=== PATIENT | male | born 2000 | race Caucasian/White ===

== ENCOUNTER 2024-03-08 10:45 | Emergency (ER) | payer SELFPAY ==
[2024-03-08 11:36] VITALS: BP 110/66; PULSE 85; RESP 16; TEMP 36.8; O2SAT 98
--- NOTE | 2024-03-08 11:58 | ED_ITS ---
HPI - URI/Sore Throat General Chief Complaint: Upper Respiratory Infection Stated Complaint: Sore Throat/Ear Pain Time Seen by Provider: 03/08/24 11:58 History of Present Illness HPI Narrative: 23 y/o male presented for c/o sore throat and ear pain for about 2 days. Patient completed Augmentin for bilateral ear infection 3 days ago. He states the URI symptoms restarted. Taking Sudafed for symptoms. Denies cough, shortness of breath, wheezing nausea, vomiting or fever. Related Data Home Medications Medication Instructions Recorded Confirmed tretinoin 0.025 % topical cream 1 applic topical HS 03/08/24 03/08/24 Allergies Allergy/AdvReac Type Severity Reaction Status Date / Time No Known Allergies Allergy Verified 03/08/24 12:05 Review of Systems Review of Systems: ROS per HPI Exam Narrative: GENERAL: well-appearing EYES: conjunctivae clear ENT: Mucous membranes moist. Right TM pearly dean with normal light reflex; left TM erythematous, bulging and intact; canal not erythematous, no drainage no tragal tenderness. Oropharynx erythematous without lesions. Tonsils enlarged and without exudate. No drooling, no hoarseness, no trismus, uvula midline. No tripod positioning, hot potato voice, or soft palate swelling. NECK: Supple. No lymphadenopathy CHEST: Clear to auscultation, breath sounds equal. No respiratory distress, speaks in full sentences. HEART: Regular rate and rhythm. SKIN: Warm, dry, no rash. NEURO: Alert and oriented x3. Course Course Emergency Course: Patient is aware of diagnosis, understands and agrees to treatment plan. Anticipatory guidance given. Patient agrees to follow-up as directed and is aware of reasons to seek care at the emergency department. Portions of this record may have been created with voice recognition software Level of Care: Express Care Visit Vital Signs Vital signs: Vital Signs Temperature 98.3 F 03/08/24 11:36 Pulse Rate 85 03/08/24 11:36 Respiratory Rate 16 03/08/24 11:36 Blood Pressure 110/66 03/08/24 11:36 Pulse Oximetry 98 03/08/24 11:36 Temperature 98.3 F 03/08/24 11:36 Pulse Rate 85 03/08/24 11:36 Respiratory Rate 16 03/08/24 11:36 Blood Pressure 110/66 03/08/24 11:36 Pulse Oximetry 98 03/08/24 11:36 MDM - URI/Sore Throat MDM Narrative Medical decision making narrative: Neg strep result reviewed with pt. discussed physical exam findings consistent with left otitis media. Pt completed Augmentin 3 days ago. Advise supportive treatments. Patient is appropriate for outpatient treatment and follow-up. Differential Diagnosis Differential diagnosis: Likely upper respiratory infection, viral infection and pharyngitis Discharge Plan Discharge Clinical Impression: Otitis media Patient Disposition: Home, Self-Care Condition: Stable Instructions: Antibiotic Form, Ear Infection (ED) Additional Instructions: Take antibiotics as directed for left ear infection Recommend antihistamine such as Benadryl, Zyrtec or Aster for sinus congestion Flonase nasal spray, 1 spray in each nostril once daily until symptoms improve Symptomatic treatment includes: rest, fluids, and increase humidity of the air at home. Tylenol 1000mg every 8 hours as needed to reduce fever, pain Please schedule a follow-up visit with your personal physician for further e valuation and treatment within 3-5days. If your symptoms persist, change or worsen significantly, go to the emergency department for further evaluation. Prescriptions: New levofloxacin 750 mg tablet 750 mg PO DAILY Qty: 7 0RF No Action tretinoin 0.025 % cream 1 applic TOPICAL HS Follow-up/Referrals: PHYSICIAN,FENCE GATE ASSEMBLER [Primary Care Provider] -
[2024-03-08 12:05] LABS: EDSTREPNEGPOS1 Negative (Negative)
== END 2024-03-08 12:11 | disposition home or self-care (01) ==
PROVIDERS: Emergency Provider Nurse Practitioner Family
DX: H66.92 Otitis media, unspecified, left ear (principal)
CPT/HCPCS: 87081; 87880; 99203; G0463

== ENCOUNTER 2024-12-10 17:10 | Emergency (ER) | payer SELFPAY ==
[2024-12-10 17:22] VITALS: BP 124/71; PULSE 98; RESP 16; TEMP 36.8; O2SAT 98
--- NOTE | 2024-12-10 17:39 | ED.URI ---
HPI - URI/Sore Throat General Chief Complaint: Ear Stated Complaint: EARACHE Time Seen by Provider: 12/10/24 17:12 Source: patient Mode of arrival: ambulatory Limitations: no limitations History of Present Illness HPI Narrative: Franco is a 23-year-old male patient presenting to the clinic today with complaints of sore throat, nasal congestion, headache, dizziness, and body aches since last night. He reports he has taken Tylenol, Flonase, and Zyrtec for his symptoms. Denies any chest pain or shortness of breath. No known fever. States when he had symptoms like this before he had an ear infection. Related Data Home Medications ?Medication ?Instructions ?Recorded ?Confirmed ?Last Taken ?Type tretinoin 0.025 % topical cream 1 applic topical HS 03/08/24 03/08/24 Unknown History Allergies Allergy/AdvReac Type Severity Reaction Status Date / Time No Known Allergies Allergy Verified 03/08/24 12:05 Review of Systems Review of Systems: Pertinent positives per HPI. Patient denies any fever, chills, rash, visual changes, shortness of breath, chest pain, palpitations, nausea, vomiting, diarrhea, constipation, abdominal pain, or any urinary issues. PMFSH Comments At the time of my signature, I reviewed and agree with the nursing past medical, surgical, social, and family history. There is no relevant family history pertinent to the patient complaint. Exam Narrative: General: Well-developed, well nourished, in no apparent distress Head: Normocephalic, atraumatic Eyes: Pupils equally round and reactive to light bilaterally, EOM intact, sclera and conjunctive clear, no discharge, lids normal Ears: TMs intact and congested, ear canals clear, no drainage, grossly hearing normal. Nose: Nares patent, clear nasal discharge, no inflammation, no sinus tenderness. Mouth: Oral pharynx red with mild tonsillar enlargement without lesions or masses, good dentition, MMM. Neck: Supple, trachea midline, no enlargement of anterior or posterior cervical nodes, no thyroid masses or goiter palpable. Cardio: Regular rate and rhythm, s1 and s2 normal, no murmur appreciated. Resp: Clear to auscultation bilaterally, no rhonchi, rales, wheezing or rubs Course Course Emergency Course: Portions of this record may have been created with voice recognition software. Level of Care: Express Care Visit Vital Signs Vital signs: Vital Signs Temperature 36.8 C 12/10/24 17:22 Pulse Rate 98 12/10/24 17:22 Respiratory Rate 16 12/10/24 17:22 Blood Pressure 124/71 12/10/24 17:22 Pulse Oximetry 98 12/10/24 17:22 Temperature 36.8 C 12/10/24 17:22 Pulse Rate 98 12/10/24 17:22 Respiratory Rate 16 12/10/24 17:22 Blood Pressure 124/71 12/10/24 17:22 Pulse Oximetry 98 12/10/24 17:22 Vital signs reviewed MDM - URI/Sore Throat MDM Narrative Medical decision making narrative: At the time of visit patient is resting comfortably on the exam table. Patient appears to be nontoxic. Complaints of sore throat, nasal congestion, headache, dizziness, and body aches since last night. He reports he has taken Tylenol, Flonase, and Zyrtec for his symptoms. Denies any chest pain or shortness of breath. No known fever. States when he had symptoms like this before he had an ear infection. On exam patient has red oropharynx with mild tonsillar enlargement, clear nasal congestion, bilateral ear congestion, lung sounds are clear, and heart rates regular rate rhythm. COVID, flu, and strep test were ordered. Labs: COVID, flu, and strep test were performed in the clinic today. COVID testing was positive. Influenza and strep were negative. We will send strep for culture. Plan: Patient has COVID. Work note was given. Supportive measures were discussed with the patient and they voiced understanding discharge instructions and agrees to treatment plan. Return precautions reviewed Differential Diagnosis Differential diagnosis: Likely upper respiratory infection, otitis media, sinusitis, viral infection, bronchitis, influenza, pharyngitis and other (COVID) Discharge Plan Discharge Clinical Impression: COVID-19 Patient Disposition: Home Condition: Stable Instructions: Antibiotic Form, Pharyngitis (ED), Upper Respiratory Infection (ED), COVID-19 (Coronavirus Disease 2019) (ED) Additional Instructions: Influenza and strep test were all negative in the clinic today. We will send strep for culture if this comes back positive we will contact you and place you on antibiotics at that time. COVID test was positive. May take DayQuil/NyQuil for cold/flu symptoms Increase fluids and stay well hydrated May take Tylenol or motrin as directed on bottle for pain/fever May use Flonase 1 spray in each nare daily May take OTC antihistamines such as Zyrtec or Claritin daily as directed on bottle May apply Vicks vapor rub to chest to open sinuses Sinus rinses for congestion Cepacol spray, cough drops, throat lozenges, warm tea with honey/lemon, gargle salt water to soothe throat BRAT diet for diarrhea Clear liquids x 24 hours then advance as tolerated for nausea/vomiting Go to the ED if you develop a worsening in your condition- high fever not controlled by Tylenol or Motrin, dehydration, weakness, lethargy, shortness of breath, or chest pain. Follow up with your PCP in 3-5 days if symptoms persist. Patient Language: Bel[place]ian Prescriptions: No Action tretinoin 0.025 % cream 1 applic TOPICAL HS levofloxacin 750 mg tablet 750 mg PO DAILY Qty: 7 0RF Follow-up/Referrals: PHYSICIAN,SPREADER OPERATOR AUTOMATIC [Primary Care Provider, Internal Medicine] Stand Alone Forms: Work/School Release IP Time of Disposition: 17:39 Quality NIHSS Nursing Documentation ED NIHSS nursing documentation: reviewed/agree
[2024-12-10 17:50] LABS: EDCOVIDSCREEN Positive (Negative); EDINFLUASCREEN Negative (Negative); EDINFLUBSCREEN Negative (Negative); EDSTREPNEGPOS1 Negative (Negative)
== END 2024-12-10 17:53 | disposition home or self-care (01) ==
PROVIDERS: Emergency Provider Nurse Practitioner Family
DX: U07.1 COVID-19 (principal)
CPT/HCPCS: 87081; 87426; 87804; 87880; 99213; G0463